=== PATIENT | male | born 1955 | race Caucasian/White ===

== ENCOUNTER 2024-02-01 14:42 | Emergency (ER) | payer BC ==
[~2024-02-01] VITALS: Ht 175.3 cm; Wt 68.0 kg
== END 2024-02-01 15:39 | disposition home or self-care (01) ==
LOC: ER 14:42
DX: S46.211A Strain of muscle, fascia and tendon of other parts of biceps, right arm, initial encounter (principal); Z91.013 Allergy to seafood
CPT/HCPCS: 76882; 99283-25